=== PATIENT | female | born 1990 ===

== ENCOUNTER 2024-02-06 10:47 | Outpatient (AMB) | payer BC, SELFPAY ==
--- NOTE | 2024-02-06 07:37 | MHC.PC.OV ---
Vital Signs 02/06/24 10:55 Height 5 ft 7 in Weight 172 lb 6 oz BMI 27.0 BP 120/68 Blood Pressure Location Rt brachial Position Sitting Respiration 13 Pulse 72 Pulse Source Pulse Oximeter Pulse Oximetry (%) 98 Oxygen Delivery Method Room Air Intake Visit Reasons: HAIR BALER-EST CARE Intake Note: new patient to establish care Allergies Penicillins Allergy (Severe, Verified 02/06/24 11:17) Hives Medication List - Last Reconciled 02/06/24 by Andreea Sparrow, [facility]- levonorgestrel-ethinyl estrad 0.1-20 mg-mcg ([place]) 1 tab PO DAILY Tobacco use date assessed: 02/06/24 Dental Screening Dental Screen Date: 02/06/24 Did you have a dental visit in the last 12 months?: Yes Did you have a dental problem in the last 6 months where you did not have access to dental care?: No Was dental information given to patient?: Patient has dentist HPI HPI Comments History of Present Illness Details 33-year-old female with family hx of ovarian, hyperlipidemia, OCD Social: [employer] in [place], [place], lives at home with and 2 dogs Surgical hx: ear tubes bilat in childhood Family hx: Maternal GM with ovarian ca, Paternal grandfather with lung ca, Mom with HLD and ovarian cysts Health Maintenance: PAP UTD Tdap unsure Specialists: SWITCH ENGINEER appt 03/2024 at [facility] Here today to establish care. No medical records available to me today. [facility] Had a CPE this year Would like to try to conceive some time in the future Using OCP, has been on that for years. Has palps w/ PVC noted on Holter. Caffeine and stimulants trigger. 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 Wonders about a letter for this in the future. HLD - is not on meds, is practicing lifestyle mods to help. OCD was on meds in the past along w/ counseling. Did not like the way meds made her feel. Feels like she is managing. Does worry about this when she becomes . Exam Awake alert NAD No Thyromegaly RRR LS CTAB No edema BLE Mood and affect appropriate Plan Recommend starting OTC vitamin FU with ObGyn I would be happy to write work accommodation PRN RTO in July for CPE, fasting labs 1 week before, return sooner PRN This note is constructed using voice recognition software. While every effort has been made to ensure accuracy in him clerk, still errors may have been included Sometimes, these errors may affect the content or meaning of the given sentence . Total time spent caring for the patient today was 30 minutes. This includes time spent before the visit reviewing the chart, time spent during the visit, and time spent after the visit on documentation [facility] Medical History (Updated 02/06/24 @ 11:38 [address]a Sparrow [facility]) Anxiety Surgical History (Updated 02/06/24 @ 11:33 by Crystal Ramos MA) History of placement of ear tubes Family History (Updated 02/06/24 @ 11:35 by Crystal Rmaos MA) Mother High cholesterol Maternal Grandmother Cancer Paternal Grandfather Lung cancer Social History (Updated 02/06/24 @ 10:58 by Crystal Ramos MA) Household Members: Spouse Both parents involved: No Caregiver staying overnight: No Housing: House Are you a primary nursing care partner to a significant other at home: No Do you presently have visiting nurse or other home services: No 75 years or older and lives alone: No Alcohol intake: never Patient Tobacco Use Status: Never used Tobacco e-Cigarette/Vaping Use: Never Used Second Hand Smoke Exposure: No service: No Current occupational status: employed 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 1. Little interest or pleasure in doing things: not at all 2. Feeling down, depressed, or hopeless: several days 3. Trouble falling or staying asleep, or sleeping too much: several days 4. Feeling tired or having little energy: not at all 5. Poor appetite or overeating: not at all 6. Feeling bad about yourself - or that you are a failure or have let yourself or your family down: not at all 7. Trouble concentrating on things, such as reading the newspaper or watching television: not at all 8. Moving or speaking so slowly that other people could have noticed. Or the opposite - being so fidgety or restless that you have been moving around a lot more than usual: not at all 9. Thoughts that you would be better off or of hurting yourself in some way: not at all Total score: 2 Depression Screening Interpretation: Negative Depression Screening Done: Yes 27920 - PHQ-9 Billing: Yes Source: Developed by Drs. Ata Simental, Ida Rodarte, Jose Guadalupe Navas and colleagues, with an educational apolonia from [employer]. Thrive Questionnaire Date Thrive assessed: 02/06/24 I am a: Patient What is your living situation today?: I have a steady place to live Within the past 12 months, did the food you bought not last and you didn't have the money to get more?: Never true Within the past 12 months, did you worry whether your food would run out before you got money to buy more?: Never true Do you have trouble paying for medicines?: No Do you have trouble getting transportation to medical appointments?: No Do you have trouble paying your heating and electricity bill?: No Do you have trouble taking care of your child, family member or friend?: No Do you have trouble with day-to-day activities such as bathing, preparing meals, shopping, managing finances, etc.?: No Are you currently unemployed and looking for a job?: No Are you interested in more education?: No Please select the resources that you would like help with: None Currently or been in a relationship where the following occur: No concerns reported THRIVE Score: 0 AUDIT C Alcohol Use Questionnaire (AUDIT-C) 1. How often do you have a drink containing alcohol?: Never 3. How often do you have six or more drinks on one occasion?: Never Total Score: 0 Score Reviewed/Action Taken: Yes COLIN-7 AMB Questionnaire COLIN-7 Date COLIN - 7 assessed: 02/06/24 Feeling nervous, anxious, or on edge: 1 = Several days Not being able to stop or control worryin = Several days Worrying too much about different things: 1 = Several days Trouble relaxin = Several days Being so restless that it is hard to sit still: 1 = Several days Becoming easily annoyed or irritable: 1 = Several days Feeling afraid as if something awful might happen: 1 = Several days Total COLIN-7 score (0-4 normal; 5-9 mild; 10-14 moderate; 15-21 severe): 7 Source: Developed by Drs. Ata Simental, Ida Rodarte, Jose Guadalupe Navas and colleagues, with an educational apolonia from [employer]. COLIN-7 Assessment Billing COLIN-7 Assessment Tool: COLIN-7 Assessment 48262 Physical exam (Primary Care) Vital Signs: Last Vital Signs Pulse 72 02/06/24 10:55 Resp 13 02/06/24 10:55 BP 120/68 02/06/24 10:55 Pulse Ox 98 02/06/24 10:55 Oxygen Delivery Method Room Air 02/06/24 10:55 BMI result Body Mass Index 27.0 Tobacco/Smoking Status: Tobacco use Status Tobacco use date assessed 02/06/24 02/06/24 10:59 Patient Tobacco Use Status Never used Tobacco 02/06/24 10:59 e-Cigarette/Vaping Use Never Used 02/06/24 10:59 Depression Screening Interpretation: Negative Currently or been in a relationship where the following occur: No concerns reported Coding Level of Care Code New Pt Level 3 (91612) Diagnoses Establishing care with new doctor, encounter for Z76.89 Moderate mixed hyperlipidemia not requiring statin therapy E78.2 Hyperlipidemia type: moderate mixed hyperlipidemia not requiring statin therapy Family hx of ovarian malignancy Z80.41 Mixed obsessional thoughts and acts F42.2 Obsessive-compulsive disorder type: mixed obsessional thoughts and acts Intermittent palpitations R00.2 Additional Codes COLIN-7 Assessment Billing - COLIN-7 Assessment Tool: COLIN-7 Assessment 56058 ([id number]) Assessment & Plan Assessment & Plan (1) Establishing care with new doctor, encounter for: Code(s): Z76.89 - Persons encountering health services in other specified circumstances Plan: . (2) Hyperlipemia: Code(s): E78.5 - Hyperlipidemia, unspecified Category: Medical Qualifiers: Hyperlipidemia type: moderate mixed hyperlipidemia not requiring statin therapy Qualified Code(s): E78.2 - Mixed hyperlipidemia Plan: . (3) Family hx of ovarian malignancy: Comment: maternal grandmother Code(s): Z80.41 - Family history of malignant neoplasm of ovary Category: Medical Plan: . (4) OCD (obsessive compulsive disorder): Comment: . Code(s): F42.9 - Obsessive-compulsive disorder, unspecified Category: Medical Qualifiers: Obsessive-compulsive disorder type: mixed obsessional thoughts and acts Qualified Code(s): F42.2 - Mixed obsessional thoughts and acts Plan: . (5) Intermittent palpitations: Code(s): R00.2 - Palpitations Plan: . Plan . Orders: Orders Microalbumin, Random (w Creat) 07/10/24 Z00.00 - Encounter for general adult medical examination without abnormal findings Comprehensive [place]. Panel Fast 07/10/24 Z. - Encounter for general adult medical examination without abnormal findings Hemoglobin A1c 07/10/24. - Encounter for general adult medical examination without abnormal findings Lipid Panel 07/10/24. - Encounter for general adult medical examination without abnormal findings TSH reflex Free T4 07/10/24 Z. - Encounter for general adult medical examination without abnormal findings Patient Instructions: Walk-In Care (Urgent Care): We Make it Easy Walk-in for urgent medical issues such as: ? Seasonal Allergies ? Insect Bites ? Cough ? Diarrhea ? Acute Asthma Attacks ? Back, Knee or Joint Pain ? Ear Infection ? Fever without a Rash ? Headaches ? Nausea ? [place] Eye, Rash or Skin Irritation ? Sore Throat ? Sports Physicals ? Vomiting Most insurances are accepted. Patients do not need to be part of the [facility] to seek care at the walk-in clinic. Locations [facility] , [place] [address] ? [phone] [facility] Walk-In Care in [place] provides services to ages 18 and over. Open Tuesday-Tuesday: 8 a.m. to 5 p.m. and Tuesday: 9 a.m. to 3 p.m.* *Hours may vary due to staffing availability. To confirm Walk-In Care hours in [place], please call [phone]. [address] [place] [address] ? [phone] [facility] Walk-In Care in [place] provides services to ages 12 and over. Open Tuesday-Tuesday: 8 a.m. to 5 p.m. Hours may vary due to staffing availability. To confirm Walk-In Care hours in [place], please call [phone]. LABORATORY SERVICES: [facility] Lab ? Primary Location [address] [place] [address] Tuesday through Tuesday 6:00 AM ? 5:00 PM Tuesday 7:00 AM ? 11:00 AM* [phone] The [facility] Lab is centrally located near the front entrance of the Medical Center for easy outpatient access. Convenient parking is provided for outpatients. *Hours may vary due to staffing availability. To confirm Laboratory hours for any location, please call [phone]. Offsite Location For your convenience, we offer offsite laboratory draw stations at the following locations: [address] [place] [address], [facility] ? [facility] [address] [facility], [address], [place] Tuesday through Tuesday 7:30 AM ? 1:00 PM* [phone] *Hours may vary due to staffing availability. To confirm Laboratory hours for any location, please call [phone]. [place] ? [address] Tuesday through Tuesday 6:00 AM ? 3:30 PM* Tuesday 6:30 AM ? 3 PM* [phone] *Hours may vary due to staffing availability. To confirm Laboratory hours for any location, please call [phone] [place] [address] Tuesday through Tuesday 7:30 AM ? 4:00 PM* [phone] *Hours may vary due to staffing availability. To confirm Laboratory hours for any location, please call [phone] [place] [address] Tuesday through 9:00 AM ? 4:00 PM* *Hours may vary due to staffing availability. To confirm Laboratory hours for any location, please call [phone]. Appointments are not necessary. Walk-ins are welcome. Like all the departments throughout the [facility], our Lab undergoes frequent reviews to ensure the quality and accuracy of test results, and our staff takes special pride in its status as a nationally accredited facility. Patient Portal: ONE PATIENT. ONE RECORD. BETTER CARE. [facility] has a fully integrated, cutting-edge mobile electronic health information system that has revolutionized the way we care for our patients and manage our organization. This system improves communication and coordination enabling us to provide safe, higher-quality care, and an overall positive experience for staff and patients. Our first priority, as always, is to deliver the highest quality care possible. The system is running in the background supporting that priority. This portal is for all [facility] services and practices. If you are experiencing any technical difficulties with enrolling or logging into the Patient Portal please complete the [facility] Patient Portal Technical Support Form. [facility] now offers a new secure on-line interactive tool for patients to review their health information ? Patient Portal. This interactive web portal will enable patients and their families to take an active role in their care by providing easy, secure access to their health information via the internet. The Patient Portal provides patients with instant access to their health information, including laboratory results, medications, allergies, demographic information, visit history, and more. In addition to managing their own care, parents and health care proxies with authorized consent will appreciate the ability to access the records of those individuals for whom they provide care. Please note: if you wish to gain access (Proxy) to another patient?s portal, you will be required to come to the Medical Records Department in person at [facility]. Both the patient giving proxy access and the proxy will need to provide photo identification and complete the appropriate authorization. The Patient Portal also allows track their appointments online. The [facility] Patient Portal also saves patients time by allowing them to submit updates to their demographic and contact information prior to their visits. Portal email notifications will also alert patients to any new activity on their portal, such as test results and new appointments. In order to initially enroll in the [facility] Patient Portal, you will need to enter some required information including the following: ? your [facility] Medical Record number ? your personal home email address ? name ? date of Please note: In order to enroll in the [facility] Patient Portal, we need to have your email address on file in your electronic medical record. The email address needs to be specific for one person (yourself) in order for your Portal enrollment to be successful. You can update your email address in person with our Registration staff when you are registering for a hospital visit. Otherwise, you will need to come to the Health Information Management (Medical Records) Department at [facility]. We are open from Tuesday ? Tuesday from 7:30 a.m. ? 4:30 p.m. You will be required to present a photo id. Once you have successfully enrolled in the Patient Portal, you will receive a one-time user id and password for the Portal, sent to your email address. This will allow you to log into the Patient Portal within 99 hrs and reset your own logon id and password, and define personal security questions. Once your permanent login and password have been set, you can log into the [facility] Patient Portal at any time via the blue button above or from the Portal Logon button on any page of the [facility] website. [facility] and [facility] encourage all of our patients to enroll in Patient Portal as it presents a valuable opportunity for patients and their families to actively participate in their care and stay healthy Welcome to [facility]. We look forward to working with you.
[2024-02-06 10:55] VITALS: BP 120/68; PULSE 72; RESP 13; O2SAT 98; BMI 27.0
== END 2024-02-06 11:34 | disposition home or self-care (01) ==
PROVIDERS: PCP Nurse Practitioner Family; Visit Provider Nurse Practitioner Family
DX: Z76.89 Persons encountering health services in other specified circumstances (principal); E78.2 Mixed hyperlipidemia; Z80.41 Family history of malignant neoplasm of ovary; F42.2 Mixed obsessional thoughts and acts; R00.2 Palpitations

== ENCOUNTER → 2024-02-06 10:47 | Outpatient (BNVA) | payer OTHER, SELFPAY | PROVIDERS: PCP Nurse Practitioner Family; Visit Provider Nurse Practitioner Family | DX: Z76.89 Persons encountering health services in other specified circumstances (principal); E78.2 Mixed hyperlipidemia; F42.2 Mixed obsessional thoughts and acts; R00.2 Palpitations; Z80.41 Family history of malignant neoplasm of ovary | CPT/HCPCS: 96127 ==

== ENCOUNTER 2025-01-18 10:15 | Outpatient (AMB) | payer OTHER, SELFPAY ==
--- NOTE | 2025-01-18 10:32 | A.OFFPC_ITS ---
Vital Signs 01/18/25 10:43 Height 5 ft 7 in Weight 176 lb BMI 27.6 BP 98/67 Blood Pressure Location Lt brachial Position Sitting Respiration 12 Pulse 69 Pulse Source Pulse Oximeter Temp 97.5 F Temp Source Oral Pulse Oximetry (%) 99 Oxygen Delivery Method Room Air Intake Visit Reasons: CPE Intake Note: CPE. Continuous Absorption Process Operator Required: No Is last menstrual period known: Yes Last menstrual period: 12/03/24 Post menopausal: No Patient : Yes (6 weeks) Allergies Penicillins Allergy (Severe, Verified 01/18/25 11:14) Hives Medication List - Last Reconciled 01/18/25 by Andreea Sparrow, LIFE SKILLS CONSULTANT- levonorgestrel-ethinyl estrad 0.1-20 mg-mcg (Lessina) 1 tab PO DAILY Tobacco use date assessed: 01/18/25 Dental Screening Dental Screen Date: 01/18/25 Did you have a dental visit in the last 12 months?: Yes Did you have a dental problem in the last 6 months where you did not have access to dental care?: No Was dental information given to patient?: Patient has dentist HPI HPI Comments History of Present Illness Details 34-year-old female with family hx of ova sarah ca, hyperlipidemia, OCD 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 Caffeine and stimulants trigger. Watching diet. No big changes. 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 Wonders about a letter for this in the future. HLD - is not on meds, is practicing lifestyle mods to help. OCD was on meds in the past along w/ counseling. Did not like the way meds made her feel. Feels like she is managing. Does worry about this. Toe nail fungus R great toe. HOme tx not effective. : - 6-1/2 weeks , Dr. Mayo managin g. - History of bleeding, scan confirmed he artbeats. - Work concern: not disclosed, anxiety a bout workload. 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 - Family: Plans to continue routine secr etly until comfortable sharing news with work. - Reports solid social support, shared p regnancy status only with parents. Health Maintenance - Declined flu vaccine during the visit. - Tdap vaccine recommended for the benef it of both patient and fetus against pertussis. - No changes or updates to surgical hist ory. Review of Systems - Cardiovascular: Reports occasional pal pitations. - Integumentary: Reports suspicion of fu ngal infection on toenails. - Psychological: Denies changes in OCD t endencies. - General: Patient reports feeling well generally. Physical Exam General: Well developed, well nourished, in no acute distress. Appears stated age. Head: Normocephalic, atraumatic. Eyes: Pupils are equal, round and reactive to light and accommodation. Conjunctivae are clear. Scleras nonicteric bilat. Vision grossly normal. Ears: TMs clear AU, EACS WNL Nose: Patent, without discharge. Neck: No carotid bruit bilat. Supple, no adenopathy or thyromegaly. Breast: Edu on SBE Lungs: Clear to auscultation bilaterally. No rales, rhonchi or wheeze noted. Good air flow in all benjamin. Heart: Regular rate and rhythm. No murmurs, click, rubs or gallops are noted. Abdomen: Bowel sounds present in all quadrants. The abdomen is soft, nontender, with no masses or organomegaly noted. No hernias are noted. : Deferred. Reviewed recommendations for routine TECHNICAL STAFF ASSISTANT. P Pulses: Peripheral pulses are equal and palpable bilaterally. Extremities: No clubbing, cyanosis nor edema is noted. Patient has toenail fungus, advised on safe treatments during . Neurologic: Gait and station normal. Cranial Nerves 2-12 intact. Motor strength grossly symmetrical and intact. No sensory loss. Balance normal. Skin: No rashes, ulcers, or lesions noted. Turgor is good. Skin color is good. Hair and nails are without abnormalities. toe nail fungus R great toe Psych: Normal eye contact, affect and mood appropriate, and normal interactions. Patient is alert and appropriate to context. Negative depression screen, no anxiety beyond normal life stressors. Discussion Notes We discussed the current status of the patient's . She is 6-1/2 weeks along and has been managed by Dr. Huber at [facility]. We addressed the light bleeding and reassurance was provided following the scan, which showed heartbeats. We discussed the importance of TDAP vaccination, specifically in preparation for protecting her fetus. Work-related stress was addressed, and I advised her to talk to a telegraphic instrument supervisor about potentially needing screedman duties or modified hours as her progresses. Palpitations previously noted were managed with reduced caffeine and stress, evaluated by a Holter monitor with no significant concern, indicating sensitivity rather than pathology. We proposed simple topical treatments for the fungal infection given constraints: white vinegar and Vicks Vaporub. Weight, blood pressure, and lab recommendations were shared, emphasizing ongoing OB care. Conclusions: continue current monitoring, healthy lifestyle advice, responsibilities at work to be managed as progresses, monitored close communication with OB. Patient was given time to ask questions. All questions were answered to their satisfaction. Assessment and Plan 1. - Manage with OB care, monitor fatigue, and stress. 2. Palpitations - Monitor caffeine, stress management. 3. Obsessive-Compulsive Disorder Tendenc ies - Continue current management, no immedi ate changes. 4. Defer labs as she is 5. Toe nail fungus - home remedy;refer t o podiatry when not . Patient Instructions - Manage workload and stress, consider t alking to an employer if necessary. - Monitor caffeine intake and manage str ess to help reduce palpitations. - Use white vinegar and Vicks for fungal infection, safe during . - Consider Tdap vaccination for pr otection against pertussis. - RTO 1 year CPE sooner as needed. Consent Patient was informed and verbally consented to the use of an ambient scribe for clinic note documentation during this visit. [facility] Medical History (Updated 01/18/25 @ 11:36 by OTIS [facility]EN[facility] Anxiety Surgical History (Updated 02/06/24 @ 11:33 by Crystal Ramos MA) History of placement of ear tubes Family History (Updated 02/06/24 @ 11:36 by Crystal Ramos MA) Mother High cholesterol Maternal Grandmother Cancer Paternal Grandfather Lung cancer Social History (Updated 02/06/24 @ 10:58 by Crystal Ramos MA) Household Members: Spouse Housing: House Are you a primary customer care associate to a significant other at home: No Do you presently have visiting nurse or other home services: No Alcohol intake: never Patient Tobacco Use Status: Never used Tobacco e-Cigarette/Vaping Use: Never Used Second Hand Smoke Exposure: No service: No Current occupational status: employed 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 1. Little interest or pleasure in doing things: not at all 2. Feeling down, depressed, or hopeless: not at all 3. Trouble falling or staying asleep, or sleeping too much: not at all 4. Feeling tired or having little energy: not at all 5. Poor appetite or overeating: not at all 6. Feeling bad about yourself - or that you are a failure or have let yourself or your family down: not at all 7. Trouble concentrating on things, such as reading the newspaper or watching television: not at all 8. Moving or speaking so slowly that other people could have noticed. Or the opposite - being so fidgety or restless that you have been moving around a lot more than usual: not at all 9. Thoughts that you would be better off or of hurting yourself in some way: not at all Total score: 0 Depression Screening Interpretation: Negative Depression Screening Done: Yes 98139 - PHQ-9 Billing: Yes Source: Developed by Drs. Ata Simental, Ida Rodarte, Jose Guadalupe Navas and colleagues, with an educational apolonia from [employer]. Thrive Questionnaire Date Thrive assessed: 01/18/25 I am a: Patient What is your living situation today?: I have a steady place to live Within the past 12 months, did the food you bought not last and you didn't have the money to get more?: Often true Within the past 12 months, did you worry whether your food would run out before you got money to buy more?: I choose not to answer this question Do you have trouble paying for medicines?: I choose not to answer this question Do you have trouble getting transportation to medical appointments?: I choose not to answer this question Do you have trouble paying your heating and electricity bill?: I choose not to answer this question Do you have trouble taking care of your child, family member or friend?: I choose not to answer this question Do you have trouble with day-to-day activities such as bathing, preparing meals, shopping, managing finances, etc.?: I choose not to answer this question Are you currently unemployed and looking for a job?: I choose not to answer this question Are you interested in more education?: I choose not to answer this question Please select the resources that you would like help with: None Currently or been in a relationship where the following occur: I choose not to answer THRIVE Score: 1 AUDIT C Alcohol Use Questionnaire (AUDIT-C) 1. How often do you have a drink containing alcohol?: Never 3. How often do you have six or more drinks on one occasion?: Never Total Score: 0 Score Reviewed/Action Taken: Yes COLIN-7 AMB Questionnaire COLIN-7 Date COLIN - 7 assessed: 01/18/25 Feeling nervous, anxious, or on edge: 0 = Not at all Not being able to stop or control worryin = Not at all Worrying too much about different things: 0 = Not at all Trouble relaxin = Not at all Being so restless that it is hard to sit still: 0 = Not at all Becoming easily annoyed or irritable: 0 = Not at all Feeling afraid as if something awful might happen: 0 = Not at all Total COLIN-7 score (0-4 normal; 5-9 mild; 10-14 moderate; 15-21 severe): 0 Source: Developed by Drs. Ata Simental, Ida Rodarte, Jose Guadalupe Navas and colleagues, with an educational apolonia from [employer]. COLIN-7 Assessment Billing COLIN-7 Assessment Tool: COLIN-7 Assessment 87995 Physical exam (Primary Care) Vital Signs: Last Vital Signs Temp 97.5 F 01/18/25 10:43 Pulse 69 01/18/25 10:43 Resp 12 01/18/25 10:43 BP 98/67 01/18/25 10:43 Pulse Ox 99 01/18/25 10:43 Oxygen Delivery Method Room Air 01/18/25 10:43 BMI result Body Mass Index 27.6 Tobacco/Smoking Status: Tobacco use Status Tobacco use date assessed 01/18/25 01/18/25 10:33 Patient Tobacco Use Status Never used Tobacco 01/18/25 10:33 e-Cigarette/Vaping Use Never Used 01/18/25 10:33 PHQ-9: PHQ-9 Score PHQ-9: Total score 0 01/18/25 10:33 Depression Screening Interpretation: Negative Thrive Assessment: Date of Thrive Assessment Date Thrive assessed 01/18/25 01/18/25 10:33 Currently or been in a relationship where the following occur: I choose not to answer Coding Level of Care Code Est Pt Prev Care 18-39y(52710) Diagnoses Encounter for general adult medical examination without abnormal findings Z00.00 Mixed obsessional thoughts and acts F42.2 Obsessive-compulsive disorder type: mixed obsessional thoughts and acts Moderate mixed hyperlipidemia not requiring statin therapy E78.2 Hyperlipidemia type: moderate mixed hyperlipidemia not requiring statin therapy Family hx of ovarian malignancy Z80.41 Laboratory exam ordered as part of routine general medical examination Z00.00 Less than 8 weeks gestation of Z3A.01 Weeks of gestation: less than 8 weeks Onychomycosis B35.1 Additional Codes COLIN-7 Assessment Billing - COLIN-7 Assessment Tool: COLIN-7 Assessment 20481 ([id number]) PHQ-9 - 97197 - PHQ-9 Billing: Yes ([id number]) Assessment & Plan Assessment & Plan (1) Encounter for general adult medical examination without abnormal findings: Onset Date: ~01/18/25 Code(s): Z00.00 - Encounter for general adult medical examination without abnormal findings Category: Medical (2) OCD (obsessive compulsive disorder): Comment: . Code(s): F42.9 - Obsessive-compulsive disorder, unspecified Category: Medical Qualifiers: Obsessive-compulsive disorder type: mixed obsessional thoughts and acts Qualified Code(s): F42.2 - Mixed obsessional thoughts and acts (3) Hyperlipemia: Code(s): E78.5 - Hyperlipidemia, unspecified Category: Medical Qualifiers: Hyperlipidemia type: moderate mixed hyperlipidemia not requiring statin therapy Qualified Code(s): E78.2 - Mixed hyperlipidemia (4) Family hx of ovarian malignancy: Comment: maternal grandmother Code(s): Z80.41 - Family history of malignant neoplasm of ovary Category: Medical (5) Laboratory exam ordered as part of routine general medical examination: Code(s): Z00.00 - Encounter for general adult medical examination without abnormal findings Category: Medical (6) Currently : Code(s): Z34.90 - Encounter for supervision of normal , unspecified, unspecified trimester Category: Medical Qualifiers: Weeks of gestation: less than 8 weeks Qualified Code(s): Z3A.01 - Less than 8 weeks gestation of (7) Onychomycosis: Code(s): B35.1 - Tinea unguium Category: Medical Plan . Patient Instructions: Health screenings for women You should visit your health care provider from time to time, even if you are he althy. The purpose of these visits is to: Screen for medical issues Assess your risk for future medical problems Encourage a healthy lifestyle Update vaccinations and other preventive care services Help you get to know your provider in case of an illness Information Even if you feel fine, you should still see your provider for regular checkups. These visits can help you avoid problems in the future. For example, the only way to find out if you have high blood pressure is to have it checked regularly. High blood sugar and high cholesterol levels also may not have any symptoms in the early stages. A simple blood test can check for these conditions. There are specific times when you should see your provider or receive specific health screenings. The [place] Preventive Services Task Force publishes a list of recommended screenings. Below are screening guidelines for women ages 18 to 39. BLOOD PRESSURE SCREENING Your blood pressure should be checked at least once every 3 to 5 years if: Your blood pressure is in the normal range (top number less than 120 mm Hg and bottom number less than 80 mm Hg) You don't have risk factors for high blood pressure Ask your provider if you need your blood pressure checked more often if: The top number is 120 to 129 mm Hg or the bottom number is 70 to 79 mm Hg You have diabetes, heart disease, kidney problems, are overweight, or have certain other health conditions You have a first-degree relative with high blood pressure You are Black You had high blood pressure during a If the top number is 130 mm Hg or greater or the bottom number is 80 mm Hg or greater, this is considered stage 1 hypertension. Schedule an appointment with your provider to learn how you can reduce your blood pressure. Watch for blood pressure screenings in your area. Ask your provider if you can stop in to have your blood pressure checked. BREAST CANCER SCREENING Experts do not agree about the benefits of breast self-exams in finding breast cancer or saving lives. Talk to your provider about what is best for you. A screening mammogram is not recommended for most women under age 40. Your provider may discuss and recommend mammograms, MRI scans, or ultrasounds if you have an increased risk for breast cancer, such as: A mother or sister who had breast cancer at a young age (most often starting screening earlier than the age the close relative was diagnosed) You carry a high-risk genetic marker CERVICAL CANCER SCREENING Cervical cancer screening should start at age 21 years unless your provider advises otherwise. After the first test: Women ages 21 through 29 should have a Pap test every 3 years. Exoprts do not agree on whether HPV testing is recommended for this age group. Women ages 30 through 65 should be screened with either a Pap test every 3 years or the HPV test every 5 years or both tests every 5 years (called cotesting ). Women who have been treated for precancer (cervical dysplasia) should continue to have Pap tests for 20 years after treatment or until age 65, whichever is longer. If you have had your uterus and cervix removed (total hysterectomy), and you have not been diagnosed with cervical cancer or precancer (high grade cervical neoplasia), you do not need cervical cancer screening. CHOLESTEROL SCREENING Cholesterol screening should begin at: Age 45 for women with no known risk factors for coronary heart disease Age 20 for women with known risk factors for coronary heart disease Repeat cholesterol screening should take place: Every 5 years for women with normal cholesterol levels More often if changes occur in lifestyle (including weight gain and diet) More often if you have diabetes, heart disease, kidney problems, or certain other conditions DIABETES SCREENING You should be screened for diabetes starting at age 35 and then repeated every 3 years if you have no risk factors for diabetes. Screening may need to start earlier and be repeated more often if you have other risk factors for diabetes, such as: You have a first degree relative with diabetes. You are overweight or have obesity. You have high blood pressure, prediabetes, or a history of heart disease. Screening for diabetes should be done if you are planning to become and you are overweight and have other risk factors such as high blood pressure. DENTAL EXAM Go to the dentist once or twice every year for an exam and cleaning. Your dentist will evaluate if you need more frequent visits. EYE EXAM Have an eye exam every 5 to 10 years before age 40. If you have vision problems, have an eye exam every 2 years or more often if recommended by your provider. You should have an eye exam that includes an examination of your retina (back of your eye) at least every year if you have diabetes. IMMUNIZATIONS Commonly needed vaccines include: Flu shot: get one every year. COVID-19 vaccine: ask your provider what is best for you. Tetanus-diphtheria and acellular pertussis (Tdap) vaccine: have one at or after age 19 as one of your tetanus-diphtheria vaccines if you did not receive it as an adolescent. Tetanus-diphtheria: have a booster (or Tdap) every 10 years. Varicella vaccine: receive 2 doses if you never had chickenpox or the varicella vaccine. Hepatitis B vaccine: receive 2, 3, or 4 doses, depending on your exact circumstances. Measles, mumps, and rubella (MMR) vaccine: receive 1 to 2 doses if you are not already immune to MMR. Your provider can tell you if you are immune. Ask your provider about the human papillomavirus (HPV) vaccine if: You have not received the HPV vaccine in the past You have not completed the full vaccine series (you should catch up on this shot) Ask your provider if you should receive other immunizations if you have certain health problems that increase your risk for some diseases such as pneumonia. INFECTIOUS DISEASE SCREENING Women who are sexually active should be screened for chlamydia and gonorrhea up until age 25. Women 25 years and older should be screened for chlamydia and gonorrhea if at high risk. Screening for hepatitis C: All adults ages 18 to 79 should get a one-time test for hepatitis C. people should be screened at every . Screening for human immunodeficiency virus (HIV): All people ages 15 to 65 should get a one-time test for HIV. Depending on your lifestyle and medical history, you may also need to be screened for infections such as syphilis and HIV, as well as other infections. PHYSICAL EXAM All adults should visit their provider from time to time, even if they are healthy. The purpose of these visits is to: Screen for disease Assess your risk of future medical problems Encourage a healthy lifestyle Update your vaccinations and other preventive care services Maintain a relationship with a provider in case of an illness Your height, weight, and BMI should be checked at every exam. During your exam, your provider may ask you about: Depression and anxiety Diet and exercise Alcohol and tobacco use Safety issues, such as using seat belts, smoke detectors, and intimate partner violence Your medicines and risk for interactions SKIN SELF-EXAM Your provider may check your skin for signs of skin cancer, especially if you're at high risk, such as if you: Have had skin cancer before Have close relatives with skin cancer Have a weakened immune system OTHER SCREENING Talk with your provider about colon cancer screening if you have a strong family history of colon cancer or polyps, or if you have had inflammatory bowel disease or polyps yourself. Routine bone density screening of women under 40 is not recommended.
[2025-01-18 10:43] VITALS: BP 98/67; PULSE 69; RESP 12; TEMP 36.4; O2SAT 99; BMI 27.6
== END 2025-01-18 11:31 | disposition home or self-care (01) ==
LOC: HO.HMCFM 10:16
PROVIDERS: PCP Nurse Practitioner Family; Visit Provider Nurse Practitioner Family
DX: Z00.00 Encounter for general adult medical examination without abnormal findings (principal); F42.2 Mixed obsessional thoughts and acts; E78.2 Mixed hyperlipidemia; Z80.41 Family history of malignant neoplasm of ovary; Z3A.01 Less than 8 weeks gestation of pregnancy; B35.1 Tinea unguium

== ENCOUNTER → 2025-01-18 10:15 | Outpatient (BNVA) | payer OTHER, SELFPAY | PROVIDERS: PCP Nurse Practitioner Family; Visit Provider Nurse Practitioner Family | DX: O99.341 Other mental disorders complicating pregnancy, first trimester (principal); F42.2 Mixed obsessional thoughts and acts; O99.281 Endocrine, nutritional and metabolic diseases complicating pregnancy, first trimester; E78.2 Mixed hyperlipidemia; O98.911 Unspecified maternal infectious and parasitic disease complicating pregnancy, first trimester; B35.1 Tinea unguium; Z3A.01 Less than 8 weeks gestation of pregnancy; Z80.41 Family history of malignant neoplasm of ovary; Z13.31 Encounter for screening for depression; Z13.39 Encounter for screening examination for other mental health and behavioral disorders | CPT/HCPCS: 96127 ==